=== PATIENT | male | born 1975 | race Caucasian/White ===

== ENCOUNTER 2019-12-03 11:15 | Emergency (ER) | payer OTHER, SELFPAY ==
--- NOTE | ~2019-12-03 | CT_ITS ---
EXAMINATION: CT abdomen pelvis w con DATE: 12/03/2019 12:31 INDICATION: Abdominal pain. Blood in stool. TECHNIQUE: Computed tomography (CT) of the abdomen and pelvis was performed with 100 mL Omnipaque 350 intravenous contrast. Automated exposure control and iterative reconstruction technique were employe d. The dose-length product was 271.05 mGy-cm. COMPARISON: None. FINDINGS: The visualized portions of the lung bases demonstrate mild atelectasis. No pleural effusion . The heart size is normal. No pericardial effusion. Pectus excavatum is noted. The liver, gallbladde r, pancreas, adrenal glands, and kidneys are normal. Calcifications in the spleen are consistent with old granulomatous disease. There are no dilated loops of bowel. The appendix is not visualized. Ther e are no pathologically enlarged lymph nodes. There is no free intraperitoneal fluid. There is mild t horacolumbar spondylosis. IMPRESSION: 1. No etiology for the patient's symptoms. Reviewed, dictated and finalized at location A.
[2019-12-03 11:18] VITALS: BP 133/94; PULSE 88; RESP 16; TEMP 36.3; O2SAT 98
--- NOTE | 2019-12-03 11:29 | PC.NURSE ---
patient is hostile and uncooperative with attempts to assess. refuses to provide details stating it is all in the computer .
[2019-12-03 11:58] LABS: Basophils Absolute Auto 0.1 K/mm3 (0.0-0.1); Basophils Percent Auto 0.4 % (0.2-1.2); Eosinophils Percent Auto 0.1 % (0-4.4); Hematocrit 47.9 % (42.0-52.0); Hemoglobin 16.2 g/dL (14.0-18.0); Immature Granulocyte Absolute 0.12 K/mm3 (0.00-0.031); Immature Granulocyte Percent A 0.6 % (0-0.5); Lymphocytes Absolute Auto 1.08 K/mm3 (0.9-3.2); Lymphocytes Percent Auto 5.8 % (18.3-44.2); Mean Corpuscular HGB Conc 33.8 g/dl (32-36); Mean Corpuscular Hemoglobin 31.8 pg (26-34); Mean Corpuscular Volume 93.9 fl (80-100); Mean Platelet Volume 9.1 fl (7.4-10.4); Monocytes Absolute Auto 0.3 K/mm3 (0.1-0.6); Monocytes Percent Auto 1.6 % (2.6-8.5); Neutrophils Absolute Auto 17.1 K/mm3 (1.3-6.7); Neutrophils Percent Auto 91.5 % (45.5-73.1); Platelet Count Result 319 k/mm3 (150-375); Red Cell Distribution Width 14.1 % (11.5-14.5); White Blood Count 18.6 K/mm3 (4.5-10.0)
--- NOTE | 2019-12-03 11:59 | ED.GIBLEED ---
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 Today he says that he felt a lot of rectal pressure then passed a large amount of bright red blood per rectum. He has a h/o of previous rectal bleeding. This is the worst it has been. He has had previous upper and lower endoscpy. He usually gets his care from [facility] in [facility]. He is not able to provide any details about prior diagnoses, treatment, or providers. Related Data Home Medications Medication Instructions Recorded Confirmed albuterol sulfate [ProAir HFA] 2 puff INHALATION Q4-6H PRN 12/03/19 budesonide-formoterol [Symbicort] 2 inh INHALATION 12/03/19 cimetidine 400 mg PO DAILY 12/03/19 dicyclomine 300 mg PO DAILY 12/03/19 duloxetine 30 mg PO DAILY 12/03/19 omeprazole 40 mg PO DAILY 12/03/19 sucralfate 100 mg PO DAILY 12/03/19 Allergies Allergy/AdvReac Type Severity Reaction Status Date / Time No Known Allergies Allergy Mild Verified 12/03/19 11:21 Review of Systems Review of Systems: All systems reviewed & are unremarkable except as noted in HPI and below Constitutional: Constitutional: Denies fever(s) Respiratory: Respiratory: Denies dyspnea Gastrointestinal: Gastrointestinal: Reports abdominal pain, Reports constipation and Reports diarrhea Neurologic: Denies dizziness and Denies weakness Hematologic/Lymphatic: Hematologic/Lymphatic: Denies easy bleeding and Denies easy bruising PMF Past Medical History Medical History (Updated 12/03/19 @ 14:55 by Rohit Macedo MD) Rectal bleeding Social History Social History Gender identity (if verbalized by the patient): Male Exam Const: General: healthy appearing, no acute distress and alert Orientation/consciousness: patient oriented x3 HENMT: Head: normal to inspection Neck: Neck: normal visual inspection and no lymphadenopathy Chest: Chest palpation & inspection: no tenderness Resp: Effort & Inspection: normal respiratory effort Auscultation: clear to auscultation bilaterally, no rales, no rhonchi and no wheezes Cardio: Jugular venous distension: no JVD Rate: regular rate Rhythm: regular rhythm Heart sounds: no murmurs GI: Inspection: non-distended GI Palp: Yes Soft to palpation and No Tenderness to palpation present (GI) Other: Dried blood around rectum Skin: General skin exam: normal color Neuro: General: patient oriented x3 and moves all extremities Speech: normal speech Extrem: General: no edema Psych: Appearance: well kempt Affect: normal affect Course Vital Signs Vital signs: Vital Signs Temperature 36.3 C L 12/03/19 11:18 Pulse Rate 88 12/03/19 11:18 Respiratory Rate 16 12/03/19 11:18 Blood Pressure 133/94 H 12/03/19 11:18 Pulse Oximetry 98 12/03/19 11:18 Temperature 36.3 C L 12/03/19 11:18 Pulse Rate 78 12/03/19 13:40 Respiratory Rate 18 12/03/19 13:40 Blood Pressure 130/70 12/03/19 13:40 Pulse Oximetry 99 12/03/19 13:40 MDM - GI Bleed MDM Narrative Medical decision making narrative: WBCs 18.6. He reports that it has been high in the past. Otherwise Labs stable. Attempted to contact his physicians at [facility], but unable to find them with the information he provided. He says that he cannot stay in the bed anymore and he would like to be discharged to figure something else out. Medical Records Attestation: I reviewed the patient's medical records. Lab Data Attestation: I reviewed the patient's lab results. Result diagrams: 12/03/19 11:49 12/03/19 11:49 Labs: Lab Results 12/03/19 12/03/19 12/03/19 Range/Units 11:49 11:49 11:49 WBC 18.6 H (4.5-10.0) K/mm3 RBC 5.10 (4.6-6.20) M/mm3 Hgb 16.2 (14.0-18.0) g/dL Hct 47.9 (42.0
[2019-12-03 12:08] LABS: INR 0.9; Prothrombin Time 12.2 Seconds (11.1-14.7)
[2019-12-03 12:13] LABS: Alanine Aminotransferase 17 U/L (4-50); Albumin Level 4.7 g/dL (3.5-5.1); Alkaline Phosphatase 81 U/L (38-126); Anion Gap 8 mmol/L (8-16); Aspartate Amino Transferase 28 U/L (17-59); Bilirubin,Total 0.5 mg/dL (0.2-1.3); Blood Urea Nitrogen 11 mg/dL (9-20); Calcium 9.3 mg/dL (8.4-10.2); Carbon Dioxide 28 mmol/L (22-30); Chloride 104 mmol/L (98-107); Estimated CRCL calculation 93 ml/min; Estimated Glomerular Filt Rate > 60; Glucose 111 mg/dL (75-110); Potassium 4.6 mmol/L (3.4-5.0); Sodium 140 mmol/L (137-145)
[2019-12-03 13:40] VITALS: BP 130/70; PULSE 78; RESP 18; O2SAT 99
== END 2019-12-03 15:17 | disposition home or self-care (01) ==
PROVIDERS: Emergency Medicine; Emergency Provider Emergency Medicine
DX: K62.5 Hemorrhage of anus and rectum (principal)
CPT/HCPCS: 36415; 74177; 80053; 85025; 85610; 85730; 86850; 86900; 86901; 99284; Q9967

== ENCOUNTER 2020-09-24 17:43 | Emergency (ER) | payer OTHER, SELFPAY ==
--- NOTE | ~2020-09-24 | XR_ITS ---
EXAMINATION: XR chest 2V DATE: 09/24/2020 18:03 INDICATION: Shortness of breath. Right chest pain. TECHNIQUE: Frontal and lateral views of the chest were obtained on 3 radiographs. COMPARISON: None. FINDINGS: A calcified left lung nodule is consistent with old granulomatous disease. No pleural effus ion or pneumothorax. The heart size is normal. IMPRESSION: 1. No acute cardiopulmonary disease. Reviewed, dictated and finalized at location A.
--- NOTE | 2020-09-24 17:45 | ECG_ITS ---
Measurements Intervals [place] Rate: 76 P: 61 MS: 167 QRS: 56 QRSD: 89 T: 62 QT: 366 QTc: 412 Interpretive Statements SINUS RHYTHM WITH SINUS ARRHYTHMIA POSSIBLE LEFT ATRIAL ENLARGEMENT BASELINE WANDER- V3 BORDERLINE ECG Electronically Signed On 09-24-2020 21:44:39 CDT by Henri Marcelo D.O.
[2020-09-24 17:46] VITALS: BP 142/101; PULSE 93; RESP 18; TEMP 36.5; O2SAT 100
[2020-09-24 19:05] LABS: Basophils Absolute Auto 0.1 K/mm3 (0.0-0.1); Basophils Percent Auto 0.8 % (0.2-1.2); Eosinophils Absolute Auto 0.1 K/mm3 (0-0.3); Eosinophils Percent Auto 1.7 % (0-4.4); Hematocrit 47.3 % (42.0-52.0); Hemoglobin 15.8 g/dL (14.0-18.0); Immature Granulocyte Absolute 0.02 K/mm3 (0.00-0.031); Immature Granulocyte Percent A 0.3 % (0-0.5); Lymphocytes Absolute Auto 2.48 K/mm3 (0.9-3.2); Mean Corpuscular HGB Conc 33.4 g/dl (32-36); Mean Corpuscular Hemoglobin 31.3 pg (26-34); Mean Corpuscular Volume 93.7 fl (80-100); Mean Platelet Volume 8.6 fl (7.4-10.4); Monocytes Absolute Auto 1.4 K/mm3 (0.1-0.6); Monocytes Percent Auto 18.2 % (2.6-8.5); Neutrophils Absolute Auto 3.7 K/mm3 (1.3-6.7); Platelet Count Result 274 k/mm3 (150-375); Red Blood Count 5.05 M/mm3 (4.6-6.20); Red Cell Distribution Width 13.2 % (11.5-14.5); White Blood Count 7.8 K/mm3 (4.5-10.0)
[2020-09-24 19:13] LABS: Anion Gap 11 mmol/L (8-16); Blood Urea Nitrogen 4 mg/dL (9-20); Calcium 8.9 mg/dL (8.4-10.2); Carbon Dioxide 26 mmol/L (22-30); Chloride 102 mmol/L (98-107); Estimated CRCL calculation 73 ml/min; Estimated Glomerular Filt Rate > 60; Glucose 99 mg/dL (65-110); Potassium 3.6 mmol/L (3.4-5.0); Sodium 139 mmol/L (137-145)
[2020-09-24 19:33] VITALS: BP 133/90; PULSE 80; RESP 15; TEMP 36.9; O2SAT 100
--- NOTE | 2020-09-24 19:34 | ED.SOB ---
HPI - SOB/Dyspnea General Chief Complaint: Shortness of Breath/Dyspnea Stated Complaint: shortness of breath Time Seen by Provider: 09/24/20 19:34 History of Present Illness HPI Narrative: 45 yo male presents to the ED for multiple complaints. All symptoms started yesterday. He reports subjective fever, chills, and diaphoresis. Additionally he reports cough, chest congestion, and SOB. He has also had intermittent severe headache, although none at this time. He also reports right lower chest pain. Worse with deep breathing. He took theraflu with some improvement. He has not been vaccinated. Related Data Home Medications Medication Instructions Recorded Confirmed albuterol sulfate [ProAir HFA] 2 puff INHALATION Q4-6H PRN 12/03/19 budesonide-formoterol [Symbicort] 2 inh INHALATION 12/03/19 cimetidine 400 mg PO DAILY 12/03/19 dicyclomine 300 mg PO DAILY 12/03/19 duloxetine 30 mg PO DAILY 12/03/19 omeprazole 40 mg PO DAILY 12/03/19 sucralfate 100 mg PO DAILY 12/03/19 Allergies Allergy/AdvReac Type Severity Reaction Status Date / Time No Known Allergies Allergy Mild Verified 09/24/20 19:35 Review of Systems Review of Systems: All systems reviewed & are unremarkable except as noted in HPI and below Constitutional: Constitutional: Reports chills, Reports fatigue and Reports fever(s) ENT: Reports nasal congestion Cardiovascular: Cardiovascular: Reports as per HPI Respiratory: Respiratory: Reports chest congestion, Reports cough and Reports dyspnea Gastrointestinal: Gastrointestinal: Denies abdominal pain Genitourinary: Genitourinary: Reports no additional male genitourinary complaints Musculoskeletal: Musculoskeletal: Reports myalgias Neurologic: Denies confusion and Reports headache(s) [facility] Past Medical History Medical History (Updated 09/24/20 @ 20:18 by Rohit Macedo MD) Rectal bleeding Social History Social History Gender identity (if verbalized by the patient): Male Exam Const: General: healthy appearing, no acute distress and alert Orientation/consciousness: patient oriented x3 HENMT: Head: normal to inspection Face and sinus: normal facial exam Neck: Neck: normal visual inspection Chest: Chest palpation & inspection: tenderness rib (right) Resp: Effort & Inspection: normal respiratory effort Auscultation: clear to auscultation bilaterally Cardio: Rate: regular rate Rhythm: regular rhythm GI: GI Palp: Yes Soft to palpation and No Tenderness to palpation present (GI) Skin: General skin exam: normal color Neuro: General: patient oriented x3, moves all extremities and no focal motor deficits Speech: normal speech Extrem: General: normal to inspection and no edema Psych: Affect: Anxious affect present Course Vital Signs Vital signs: Vital Signs Temperature 36.5 C 09/24/20 17:46 Pulse Rate 93 09/24/20 17:46 Respiratory Rate 18 09/24/20 17:46 Blood Pressure 142/101 H 09/24/20 17:46 Pulse Oximetry 100 09/24/20 17:46 Temperature 36.9 C 09/24/20 21:10 Pulse Rate 76 09/24/20 20:26 Respiratory Rate 17 09/24/20 20:26 Blood Pressure 130/87 09/24/20 20:26 Pulse Oximetry 98 09/24/20 20:26 MDM - SOB/Dyspnea MDM Narrative Medical decision making narrative: Labs, EKG, CXR unremarkable. VS stable. Possible COVID infection Lab Data Result diagrams: 09/24/20 18:57 09/24/20 18:57 Labs: Lab Results 09/24/20 09/24/20 09/24/20 Range/Units 18:57 18:57 20:07 WBC 7.8 (4.5-10.0) K/mm3 RBC 5.05 (4.6-6.20) M/mm3 Hgb 15.8 (14.0-18.0) g/dL Hct 47.3 (42.0-52.0) % MCV 93.7 (80-100) fl MCH 31.3 (26-34) pg MCHC 33.4 (32-36) g/dl RDW 13.2 (11.5-14.5) % Plt Count 274 (150-375) k/mm3 MPV 8.6 (7.4-10.4) fl Immature Gran % (Auto) 0.3 (0-0.5) % Neut % (Auto) 47.0 (45.5-73.1) % Lymph % (Auto) 32.0 (18.3-44.2) % [place] % (Auto) 18.2 H (2.6-8.5)
[2020-09-24 19:35] VITALS: PULSE 83
--- NOTE | 2020-09-24 19:54 | PC.NURSE ---
pt reports he has been febrile and coughing today, along with shortness of breath. pt resps currently 14/min., easy, even, nonlabored. able to speak in full sentences without difficulty. O2 sats 100% on RA.
[2020-09-24] MEDS: KETOROLAC (*BKC) 60 MG/2 ML VIAL IM (20:08)
[2020-09-24 20:26] VITALS: BP 130/87; PULSE 76; RESP 17; TEMP 36.9; O2SAT 98
[2020-09-24 21:10] VITALS: TEMP 36.9
[2020-09-25 21:31] LABS: SARS-CoV-2 RNA PCR Negative
== END 2020-09-24 21:12 | disposition home or self-care (01) ==
LOC: ANHED 20:22
PROVIDERS: Emergency Medicine; Emergency Provider Emergency Medicine
DX: R05 Cough (principal); R06.02 Shortness of breath; Z20.822 Contact with and (suspected) exposure to COVID-19; R94.31 Abnormal electrocardiogram [ECG] [EKG]
CPT/HCPCS: 36415; 71046; 80048; 85025; 93005; 96372; 99283; C9803; J1885; U0003; U0005